=== PATIENT | female | born 1990 | race Caucasian/White ===

== ENCOUNTER 2022-06-17 09:31 | Emergency (ER) | payer MEDICAID, SELFPAY ==
--- NOTE | ~2022-06-17 | XR_ITS ---
EXAMINATION: XR FOOT, LEFT CLINICAL INFORMATION: Left foot pain. COMPARISON: None TECHNIQUE: AP, lateral, and oblique views of the left foot. FINDINGS: There is a nondisplaced transverse fracture at the level the proximal metaphysis of the third metacarpal. The remainder the digits appear intact. There is mild soft tissue swelling. XR/XR foot LT min 3V IMPRESSION: Acute or subacute appearing nondisplaced fracture of the proximal metaphysis of the third metatarsal.
[2022-06-17 09:41] VITALS: BP 126/70; PULSE 78; RESP 16; TEMP 36.1; O2SAT 97; BMI 24.4
--- NOTE | 2022-06-17 11:22 | ED_ITS ---
HPI - Extremity Injury (Lower) General Chief Complaint: Extremity Injury, Lower Stated Complaint: L foot broken? Time Seen by Provider: 06/17/22 10:11 Source: patient Mode of arrival: wheelchair Limitations: no limitations History of Present Illness HPI Narrative: 31 yo female here with left foot pain since last night. Patient reports she almost fell, tried to catch her but he stepped on her left foot. Now pain especially with weight bearing. No previous injury to this foot. Related Data Previous Rx's Medication Instructions Recorded ibuprofen 800 mg tablet 800 mg PO Q8H PRN pain #30 tabs 06/17/22 off loading boot (Aircast off #1 ea 06/17/22 loading boot) Allergies Allergy/AdvReac Type Severity Reaction Status Date / Time No Known Allergies [NKA] Allergy Mild NOT Verified 06/17/22 09:41 APPLICABLE Review of Systems Review of Systems: Yes all other systems are reviewed and are negative Constitutional: Constitutional: Reports no additional constitutional complaints, Denies body ache(s), Denies chills, Denies fever(s), Denies headache(s) and Denies weakness Eyes: Eyes: Reports no additional eye complaints and Denies change in vision ENT: Reports system reviewed and no additional complaints, except as documented, Denies dizziness, Denies headache(s), Denies nasal congestion, Denies nasal discharge and Denies neck pain Cardiovascular: Cardiovascular: Reports no additional cardiovascular complaints, Denies chest pain, Denies leg edema and Denies dyspnea Respiratory: Respiratory: Reports no additional respiratory complaints, Denies cough and Denies dyspnea Gastrointestinal: Gastrointestinal: Reports no additional gastrointestinal complaints, Denies abdominal pain, Denies diarrhea, Denies nausea and Denies vomiting Genitourinary: Genitourinary: Reports no additional female genitourinary complaints and Denies urinary incontinence Musculoskeletal: Musculoskeletal: Reports no additional musculoskeletal complaints, Denies back pain, Reports arthralgias, Reports joint swelling, Reports limited range of motion, Denies neck pain, Denies numbness and Denies tingling Integumentary/Breasts: Skin/Breast: Reports system reviewed and no additional complaints, except as docu and Denies rash Neurologic: Reports system reviewed and no additional complaints, except as documented, Denies Abnormal speech present, Denies dizziness, Denies headache(s), Denies numbness, Denies tingling and Denies weakness PMFSH Past Medical History Attestation statement: The following information was validated with the patient. Source: old records reviewed and nursing notes reviewed Social History Social History Advance Directives: No Advance Directives Information Provided: No Physical Exam Vital Signs: Vital Signs: Last Vital Signs Temp 97 F 06/17/22 09:41 Pulse 78 06/17/22 09:41 Resp 16 06/17/22 09:41 BP 126/70 06/17/22 09:41 Pulse Ox 97 06/17/22 09:41 O2 Del Method 06/17/22 09:41 BMI result Body Mass Index 24.4 Const: General: cooperative, healthy appearing, comfortable and no acute distress Orientation/consciousness: patient oriented x3 Limitations: no limitations HEENT: Head: Yes normal to inspection Ears: hearing grossly normal bilate rally General nose exam: Normal external nose present Face and sinus: Yes normal facial exam Mouth: Normal oral and palatal mucosa present Throat: Yes posterior oropharynx normal Eyes: General: appearance normal, both eyes and all related structures Pupils: Equal, round and reactive pupils present Neck: Neck: Yes normal visual inspection Chest: Chest palpation & inspection: normal inspection of the chest Resp: Effort & Inspection: normal respiratory effort Auscultation: clear to auscultation bilaterally Cardio: Rate: regular rate Rhythm: regular rhythm Peripheral pulses: Peripheral pulses 2+ throughout GI: Inspection: Yes normal to inspection Palpation (GI): Soft to palpation and nontender Auscultation: normal bowel sounds Back/Spine/Pelvis: Thoracic/Lumbar Spine: thoracic and lumbar spine normal to inspection Skin: General skin exam: no rashes or lesions noted Neuro: General: patient oriented x3, no focal motor deficits and normal sensation to monofilament Cranial nerves: Yes Equal, round and reactive pupils present Cognition (Neuro): normal cognition Speech: No Abnormal speech present Gait exam (Neuro): Normal gait present Motor exam (neuro): 5/5 motor strength present throughout Extrem: Other: +swelling/ecchymosis over left foot with tenderness to palp over dorsal aspect Pain with flexion/extension of foot No ankle pain or calf pain NV intact distally Course Course Course Narrative: 1130 IMPRESSION: Acute or subacute appearing nondisplaced fracture of the proximal metaphysis of the third metatarsal. -Patient denies previous injury. Likely acute. Spoke to orthopedics fondant machine operator (Iram ANDINO). Recommened orthopedic boot WBAT. Not available in ED. Given RX. In the meantine given ysabel wrap and crutches until able to get boot. Reviewed worrisome signs.symptoms with patient and when to seek additional care. Comfortable with discharge home. MDM - Extremity Injury (Lower) MDM Narrative Medical decision making narrative: 31 yo female here with left foot pain after injury last evening Will check x-rays. Medical Records Attestation: I reviewed the patient's medical records. Lab Data Attestation: I reviewed the patient's lab results. Imaging Data foot x-rays: Attestation: I personally reviewed and interpreted this imaging study as follows: Radiologist's impression: [address] [address] XRay Report Signed Patient: Courtney Rabago MR#: [id number] : 1990 Acct:[id number] Age/Sex: 31 / F ADM Date: 06/17/22 Loc: HO.ED Attending Dr: Ordering Physician: Generic ED Physician Date of Service: 06/17/22 Procedure(s): XR foot LT min 3V Accession Number(s): [id number] cc: Generic ED Physician~ EXAMINATION: XR FOOT, LEFT CLINICAL INFORMATION: Left foot pain.? COMPARISON: None? TECHNIQUE: AP, lateral, and oblique views of the left foot. FINDINGS: There is a nondisplaced transverse fracture at the level the proximal metaphysis of the third metacarpal. The remainder the digits appear intact. There is mild soft tissue swelling. XR/XR foot LT min 3V IMPRESSION: Acute or subacute appearing nondisplaced fracture of the proximal metaphysis of the third metatarsal. Discharge Plan Discharge Clinical Impression: Foot fracture, left Patient Disposition: Home, Self-Care Instructions: Foot Fracture in Adults (ED) Additional Instructions: Rest, ice, elevate Go to medical supply store to get an orthopedic boot Use the boot with weight bearing as tolerated Call orthopedics tomorrow for a follow-up Prescriptions: New ibuprofen 800 mg tablet 800 mg PO Q8H PRN (Reason: pain) Qty: 30 0RF (DME) Aircast off loading boot Kit See Rx Instructions .Route Qty: 1 0RF Rx Instructions: As directed Referrals: [facility] – [place] [facility] [Provider Group] - 10 days Stand Alone Forms: Work/School Release
== END 2022-06-17 11:54 | disposition home or self-care (01) ==
PROVIDERS: Emergency Provider Emergency Medicine
DX: S92.902A Unspecified fracture of left foot, initial encounter for closed fracture (principal); M79.672 Pain in left foot; W01.0XXA Fall on same level from slipping, tripping and stumbling without subsequent striking against object, initial encounter; Y93.9 Activity, unspecified; Y92.9 Unspecified place or not applicable; Y99.9 Unspecified external cause status
CPT/HCPCS: 73630; 99283

== ENCOUNTER → 2022-06-25 09:12 | Outpatient (BNVA) | payer MEDICAID, SELFPAY | PROVIDERS: Visit Provider Physician Assistant | DX: S92.332A Displaced fracture of third metatarsal bone, left foot, initial encounter for closed fracture (principal) | CPT/HCPCS: 99202 ==

== ENCOUNTER 2022-08-06 11:58 | Outpatient (REF) | payer MEDICAID, SELFPAY | END 2022-08-06 11:59 | disposition home or self-care (01) | LOC: HO.HOSX 11:58 | PROVIDERS: Visit Provider Physician Assistant | DX: Z13.89 Encounter for screening for other disorder (principal) ==